=== PATIENT | male | born 1945 | race Caucasian/White ===

== ENCOUNTER 2016-07-28 18:27 | Inpatient (IN) | payer MEDICAID ==
[~2016-07-28] VITALS: Ht 172.7 cm; Wt 77.8 kg
--- NOTE | 2016-07-28 18:52 | ERA ---
ER Documentation Chief Complaint Date/Time DATE: 07/28/16 TIME: 18:47 Chief Complaint according to , pt "talking jibberish" approximately 3-4 hr ago HPI Patient is a 71-year-old man, last known well at 10 AM, who was noted by his to be speaking gibberish on the phone around 1:40 PM. The does not know where the patient has been since this morning, says that the patient says that he was knocked out. Patient cannot provide additional history due to altered mental status. Per EMS, the patient had a normal glucose, no focal weakness or facial droop, but was not following commands appropriately and had some nonsensical speech. ROS All systems reviewed and are negative except as per history of present illness. Allergies Allergies: Coded Allergies: No Known Allergy (Unverified , 07/28/16) PMhx/Soc Past medical history: Hypertension, chronic pain, other history unknown use Past surgical history: Denies Social history: Intermittent alcohol use, occasionally heavy, no tobacco, no illicit drugs FmHx Family History: No coronary disease, No diabetes Physical Exam Vitals Vital Signs Date Time Temp Pulse Resp B/P Pulse Ox O2 Delivery O2 Flow Rate FiO2 07/28/16 18:33 97.9 68 18 179/92 97 Physical Exam Const: Alert, no acute distress Head: Atraumatic Eyes: Normal Conjunctiva, no pallor, no icterus, pupils equally round reactive to light, EOMI ENT: Normal External Ears, Nose and Mouth. Moist mucous membranes Neck: Full range of motion. No JVD. No carotid bruit. No meningismus. Resp: Clear to auscultation bilateral, no rales, no wheeze Cardio: Regular rate and rhythm, no murmurs Abd: Soft, non tender, non distended. Skin: No petechiae or rashes Back: No midline or flank tenderness Ext: No cyanosis, or edema Neur: Awake and alert, cranial nerves II through XII intact bilaterally, strength and sensation intact in 4 extremities, normal gait, no pronator drift, no dysmetria, no asterixis, no nystagmus. Patient is not following all commands , has some garbled speech. Negative Babinski bilateral. Psych: Normal Mood and Affect Result Diagram: 07/28/16 1840 07/28/16 1840 Results 24 hrs Laboratory Tests Test 07/28/16 18:40 07/28/16 19:05 07/28/16 19:15 White Blood Count 11.210^3/ul Red Blood Count 3.9310^6/ul Hemoglobin 12.9g/dl Hematocrit 37.6% Mean Corpuscular Volume 95.7fl Mean Corpuscular Hemoglobin 32.8pg Mean Corpuscular Hemoglobin Concent 34.3g/dl Red Cell Distribution Width 11.7% Platelet Count 26536^3/UL Mean Platelet Volume 9.2fl Neutrophils % 74.9% Lymphocytes % 18.3% Monocytes % 5.4% Eosinophils % 0.6% Basophils % 0.3% Nucleated Red Blood Cells % 0.0/100WBC Neutrophils # 8.410^3/ul Lymphocytes # 2.110^3/ul Monocytes # 0.610^3/ul Eosinophils # 0.110^3/ul Basophils # 0.010^3/ul Nucleated Red Blood Cells # 0.010^3/ul Prothrombin Time 13.3Sec Prothrombin Time Ratio 1.0 INR International Normalized Ratio 1.01 Activated Partial Thromboplast Time 26.1Sec Sodium Level 142mmol/L Potassium Level 3.5mmol/L Chloride Level 103mmol/L Carbon Dioxide Level 26mmol/L Anion Gap 17 Blood Urea Nitrogen 27mg/dl Creatinine 1.19mg/dl Glucose Level 95mg/dl Calcium Level 9.5mg/dl Total Bilirubin 1.0mg/dl Direct Bilirubin 0.00mg/dl Indirect Bilirubin 1.0mg/dl Aspartate Amino Transf (AST/SGOT) 26IU/L Alanine Aminotransferase (ALT/SGPT) 30IU/L Alkaline Phosphatase 48IU/L Ammonia < 9umol/l Troponin I < 0.012ng/ml Total Protein 7.4g/dl Albumin 4.4g/dl Globulin 3.00g/dl Albumin/Globulin Ratio 1.46 Ethyl Alcohol Level < 10.0mg/dl Bedside Glucose 89mg/dL Urine Color LT. YELLOW Urine Clarity CLEAR Urine pH 6.0 Urine Specific Lynn 1.020 Urine Ketones NEGATIVE Urine Nitrite NEGATIVE Urine Bilirubin NEGATIVE Urine Urobilinogen 0.2 E.U./dL Urine Leukocyte Esterase NEGATIVE Urine Microscopic RBC 2-5/HPF Urine Microscopic WBC 0-2/HPF Urine Squamous Epithelial Cells OCCASIONAL Urine Hemoglobin 1+ Urine Glucose NEGATIVE% Urine Total Protein NEGATIVE Urine Opiates Screen POSITIVE Urine Barbiturates NEGATIVE Urine Amphetamines Screen NEGATIVE Urine Benzodiazepines Screen NEGATIVE Urine Cocaine Screen NEGATIVE Urine Cannabinoids NEGATIVE Current Medications Medications (Trade) Dose Ordered Sig/Venkatesh Route PRN Reason Start Time Stop Time Status Last Admin Dose Admin Aspirin (Aspirin) 162 mg ONCE ONCE PO 07/28/16 20:00 07/28/16 20:01 DC 07/28/16 19:42 IV Flush 10 ml 10 ml STK-MED ONCE .ROUTE 07/28/16 19:40 07/28/16 19:41 DC 07/28/16 20:06 Sodium Chloride 100 ml @ ud STK-MED ONCE .ROUTE 07/28/16 19:40 07/28/16 19:41 DC 07/28/16 20:07 Iohexol (Omnipaque) 100 ml @ ud STK-MED ONCE .ROUTE 07/28/16 19:40 07/28/16 19:41 DC 07/28/16 20:06 Iohexol (Omnipaque 350mg/ ml) 50 ml STK-MED ONCE .ROUTE 07/28/16 19:40 07/28/16 19:41 DC Procedures/MDM EKG read by me: Time 1835, rate 61 Rhythm: Normal sinus [place]: Normal Intervals: Normal ST-T waves: no ischemic changes Ectopy: No Q-waves: No Impression: No evidence of ischemia or arrhythmia MDM: Patient is a 71-year-old male with hypertension who presents with altered mental status that is defined by garbled speech and difficulty following commands. There is no motor deficit in the patient is able to follow some commands and communicate some thoughts. CT head was unremarkable, aspirin was given for presumed ischemic CVA, which was confirmed on CT angiogram of the head. The patient was not a candidate for TPA based upon her last known well time of 10 AM, outside of the 4 and a half hour window. The CT angiogram showed a fourth or fifth order branch of the MCA that was occluded by thrombus, which is not amenable to endovascular treatment. The patient received aspirin, and will be admitted for further stroke workup. There is no evidence of atrial fibrillation. There is no carotid bruit. The patient does not have known CHF. The patient had a blood pressure in the 170s systolic, which was not treated due to permissive hypertension for acute ischemic CVA. Departure Diagnosis: Primary Impression: Acute ischemic stroke Additional Impression: Aphasia Condition: Stable KIMBERLY ORR MD Jul 28, 2016 18:52
[2016-07-28 19:00] LABS: ADD SCAN DIFF NO
[2016-07-28 19:04] LABS: BASOPHILS % 0.3 % (0.0-2.0); EOSINOPHILS # 0.1 10^3/ul (0.0-0.5); EOSINOPHILS % 0.6 % (0.0-7.0); HEMATOCRIT 37.6 % (42.0-52.0); HEMOGLOBIN 12.9 g/dl (14.0-18.0); LYMPHOCYTES # 2.1 10^3/ul (0.8-2.9); LYMPHOCYTES % 18.3 % (15.0-51.0); MEAN CORPUSCULAR HEMOGLOBIN 32.8 pg (29.0-33.0); MEAN CORPUSCULAR HGB CONC 34.3 g/dl (32.0-37.0); MEAN CORPUSCULAR VOLUME 95.7 fl (82.0-101.0); MEAN PLATELET VOLUME 9.2 fl (7.4-10.4); MONOCYTE # 0.6 10^3/ul (0.3-0.9); MONOCYTES % 5.4 % (0.0-11.0); NEUTROPHIL # 8.4 10^3/ul (1.6-7.5); NEUTROPHILS % 74.9 % (39.0-77.0); PLATELET COUNT 224 10^3/UL (140-415); RED BLOOD COUNT 3.93 10^6/ul (4.70-6.10); RED CELL DISTRIBUTION WIDTH 11.7 % (11.5-14.5); WHITE BLOOD COUNT 11.2 10^3/ul (4.8-10.8)
[2016-07-28 19:12] LABS: INR 1.01; PROTIME 13.3 Sec (12.2-14.2)
[2016-07-28 19:13] LABS: PARTIAL THROMBOPLASTIN TIME 26.1 Sec (25.0-35.0)
--- NOTE | 2016-07-28 19:14 | RADRPT ---
PROCEDURE: CT Head without. CLINICAL INDICATION: Altered mental status. TECHNIQUE: The study was performed utilizing a multi-slice, multidetector CT scanner. Direct spira l 1 mm axial sections were obtained through the head without the use of intravenous contrast materia l. 1 or more of the following dose reduction techniques were utilized: Automated exposure control, adjustment of the mA and/or kV according to patient's size, iterative reconstruction technique. Co héctor and sagittal reformations were obtained. The images were reviewed on a PACS workstation. RADIATION DOSE: CTDIvol: 43.5 mGyDLP: 720.2 mGy-cm COMPARISON: No prior studies are available for comparison. FINDINGS: There is no intracranial hemorrhage, extra-axial fluid collection, mass lesion, midline shift or hyd rocephalus. There is mild to moderate prominence of the cerebral sulci, lateral and third ventricle s. There is moderate patchy periventricular and subcortical white matter hypodensity. There is mod erate arteriosclerotic calcification of the parasellar internal carotid arteries. The servin-white ma tter differentiation is preserved. The basal cisterns are patent. The midline structures are intac t. The orbits, calvarium and extracranial soft tissues are normal in appearance. The visualized par anasal sinuses, mastoid air cells and middle ear cavities are normally aerated. IMPRESSION: 1. No acute intracranial abnormality. No intracranial hemorrhage, extra-axial fluid collection, ma ss lesion or hydrocephalous. 2. Mild to moderate peripheral and central cerebral volume loss. 3. Moderate patchy periventricular and subcortical white matter hypodensity, likely related to combiner operator claudette microangiopathic changes. 4. No definite extension of hypodensity through the cortex to suggest infarct at this time. If cli nical concern for infarct, MRI is recommended for further evaluation. RPTAT: HGAS .Jamie Blank MD, MD Date Time Electronically viewed and signed by .Jamie Blank MD, on 07/28/2016 19:14 .S/
[2016-07-28 19:15] LABS: ALBUMIN 4.4 g/dl (3.3-4.9); CHLORIDE 103 mmol/L (97-110); POTASSIUM 3.5 mmol/L (3.5-5.1); SODIUM 142 mmol/L (135-144)
[2016-07-28 19:17] LABS: CREATININE 1.19 mg/dl (0.61-1.24)
[2016-07-28 19:18] LABS: ALANINE AMINOTRANSFERASE 30 IU/L (13-69); ALBUMIN/GLOBULIN RATIO 1.46; ALKALINE PHOSPHATASE 48 IU/L (42-121); ANION GAP 17 (8-16); ASPARTATE AMINO TRANSFERASE 26 IU/L (15-46); BLOOD UREA NITROGEN 27 mg/dl (7-20); CALCIUM 9.5 mg/dl (8.4-10.2); CARBON DIOXIDE 26 mmol/L (21-31); GLUCOSE 95 mg/dl (70-220); TOTAL PROTEIN 7.4 g/dl (6.1-8.1)
[2016-07-28 19:30] LABS: ETHANOL < 10.0 mg/dl; TROPONIN-I < 0.012 ng/ml (0.00-0.12)
[2016-07-28 19:40] LABS: ADD UMIC YES; URINE BILIRUBIN (Dip) NEGATIVE (NEGATIVE); URINE BLOOD (Dip) 1+ (NEGATIVE); URINE COLOR LT. YELLOW (YELLOW); URINE GLUCOSE (Dip) NEGATIVE (NEGATIVE); URINE KETONES (Dip) NEGATIVE (NEGATIVE); URINE LEUKOCYTE ESTERASE (Dip) NEGATIVE (NEGATIVE); URINE NITRITE (Dip) NEGATIVE (NEGATIVE); URINE TOTAL PROTEIN (Dip) NEGATIVE (NEGATIVE); URINE UROBILINOGEN (Dip) 0.2 E.U./dL (0.1-1.0)
[2016-07-28] MEDS ORDERED: IOHEXOL 100 ML ONE (19:40)
[2016-07-28] MEDS ORDERED: SOD CHLORIDE 0.9% 100 ML ONE (19:40)
[2016-07-28] MEDS ORDERED: IOHEXOL 350MG/ML 50 ML BTL ONE (19:40)
--- NOTE | 2016-07-28 19:44 | RADRPT ---
PROCEDURE: XR Chest. CLINICAL INDICATION: Altered mental status. TECHNIQUE: Portable AP upright view of the chest was obtained. COMPARISON: None available. FINDINGS: The cardiomediastinal silhouette is mildly enlarged. The lungs are clear. There is no evidence for pleural effusion, pneumothorax or pulmonary vascular congestion. The osseous structures are intact with no evidence for acute abnormality. Calcification aortic arch is demonstrated. RPTAT:HJJR IMPRESSION: 1. Mild cardiac silhouette enlargement without evidence for acute intrathoracic pathology. 2. Aortic atherosclerosis is present. Physician Alonzo Date Time Electronically viewed and signed by Physician Alonzo on 07/28/2016 19:44 JR/
[2016-07-28 19:55] LABS: SQUAMOUS EPITHELIAL CELL,UR OCCASIONAL
[2016-07-28] MEDS ORDERED: ASPIRIN 81 MG TAB PO ONE (20:00)
[2016-07-28 20:18] LABS: BARBITURATES NEGATIVE (NEGATIVE); BENZODIAZEPINES NEGATIVE (NEGATIVE); CANNABINOIDS NEGATIVE (NEGATIVE); COCAINE NEGATIVE (NEGATIVE); OPIATES POSITIVE (NEGATIVE)
--- NOTE | 2016-07-28 20:34 | RADRPT ---
PROCEDURE: CTA Brain. CLINICAL INDICATION: Altered mental status and possible stroke TECHNIQUE: The study was performed utilizing a GE 64-slice multidetector CT scanner. Direct spiral 0.65 mm axial sections were obtained through the intracranial vasculature with the use of 100 cc of Onipaque 350 nonionic intravenous contrast material. Coronal and sagittal MPRs as well as maximal intensity projection reformations were obtained. The images were reviewed on a PACS workstation. The CTDIvol is 75.66 mGy and the DLP is 605.24 mGycm. COMPARISON: No prior studies are available for comparison. FINDINGS: The internal carotid arteries are patent and normal in caliber. Moderate calcified plaque is noted i n the bilateral cavernous internal carotid arteries. The proximal anterior cerebral and middle cere bral arteries are patent and normal in caliber. An abrupt occlusion is noted in the left fourth and fifth order middle cerebral artery branches compatible with acute infarct. The vertebral arteries, basilar artery, superior cerebellar arteries, and posterior cerebral arteries are all normal in appe arance. A dominant right vertebral artery is present. A large right posterior communicating artery is present. No aneurysm is identified. No vascular malformation is seen. An acute infarct is noted in the left parietal lobe with subtle decreased attenuation noted IMPRESSION: 1. Acute occlusion of the distal fourth and fifth order left middle cerebral artery branches compat ible with acute , non hemorrhagic, infarct in the left parietal lobe. 2. Acute non hemorrhagic left parietal lobe infarct. 3. Moderate atherosclerotic vascular disease A call report was made to Guerrero Wells at 07/28/2016 8:30:42 PM following the completion of the ex amination by the undersigned. RPTAT: HDC .Mikki Sifuentes MD, MD Date Time Electronically viewed and signed by .Mikki Sifuentes MD, on 07/28/2016 20:34 .C/
[2016-07-28] MEDS ORDERED: ONDANSETRON 4 MG INJ IV PRN (21:00)
[2016-07-28] MEDS ORDERED: ACETAMINOPHEN 325 MG TAB PO PRN (21:00)
[2016-07-28 23:30] VITALS: TEMP 98
[2016-07-29] VITALS (13 sets, daily range): BP systolic 130–201; BP diastolic 63–91; PULSE 53–69; RESP 18–21; Ht 172.7 cm; Wt 77.8 kg
[2016-07-29] MEDS ORDERED: HYDROCODONE/APAP (7.5/325) TAB PO PRN (03:00)
[2016-07-29] MEDS: FISH OIL 1,000 MG CAP PO SCH ×2 (03:00→09:14)
[2016-07-29 06:59] LABS: ADD SCAN DIFF NO
[2016-07-29 07:02] LABS: BASOPHIL # 0.1 10^3/ul (0.0-0.1); BASOPHILS % 0.5 % (0.0-2.0); EOSINOPHILS # 0.2 10^3/ul (0.0-0.5); EOSINOPHILS % 1.7 % (0.0-7.0); HEMATOCRIT 36.7 % (42.0-52.0); HEMOGLOBIN 12.3 g/dl (14.0-18.0); LYMPHOCYTES # 3.6 10^3/ul (0.8-2.9); LYMPHOCYTES % 36.7 % (15.0-51.0); MEAN CORPUSCULAR HEMOGLOBIN 32.2 pg (29.0-33.0); MEAN CORPUSCULAR HGB CONC 33.5 g/dl (32.0-37.0); MEAN CORPUSCULAR VOLUME 96.1 fl (82.0-101.0); MEAN PLATELET VOLUME 9.2 fl (7.4-10.4); MONOCYTE # 0.9 10^3/ul (0.3-0.9); NEUTROPHILS % 51.8 % (39.0-77.0); PLATELET COUNT 207 10^3/UL (140-415); RED BLOOD COUNT 3.82 10^6/ul (4.70-6.10); WHITE BLOOD COUNT 9.7 10^3/ul (4.8-10.8)
[2016-07-29 07:24] LABS: ALBUMIN/GLOBULIN RATIO 1.21; BILIRUBIN,INDIRECT 0.8 mg/dl (0-1.1); BILIRUBIN,TOTAL 0.8 mg/dl (0.2-1.3); CALCIUM 9.1 mg/dl (8.4-10.2); CHOL/HDL RATIO 3.1 RATIO; CREATININE 1.1 mg/dl (0.61-1.24); POTASSIUM 3.5 mmol/L (3.5-5.1); TOTAL PROTEIN 7.3 g/dl (6.1-8.1)
--- NOTE | 2016-07-29 07:36 | HP ---
Date/Time of Note Date/Time of Note DATE: 07/29/16 TIME: 07:21 Assessment/Plan VTE Prophylaxis VTE Prophylaxis Intervention: heparin Lines/Catheters IV [facility] Urinary Cath still in place: No Assessment/Plan Assessment/Plan 1. Acute Ischemic CVA - Aspirin, statin and subq heparin for Prophylaxis - will obtain MRI of the brain - neurology consult - PT and speech/swallow eval - Will allow permissive Hypertension and will not treat BP for 24hrs unless > 220/120 ( until 10am tomorrow) 2. Hypertensive Urgency - See above 3. Hx of BPH - once we obtain home med, will resume DVT ppx: subq heparin HPI/ROS Admit Date/Time Admit Date/Time Jul 28, 2016 at 20:36 Hx of Present Illness Patient is a 71 yo male with hx of HTN and BPH who was brought to ER for altered mentation. pt, currently is not able to provide history and as such information is gathered from chart review, ER Physician and son who is at bedside. Per EMS, pt was found in [place] without [place]. told ER that when she talked to him over the phone in the afternoon, she was not able to understand him and was talking gebbrish. Currently pt does not know his name, year or location. His son said, the last time he saw his father was a week ago and said his father has always been fully independent. ER Course: BP was as high as 209/103. CT head showed Moderate patchy periventricular and subcortical white matter hypodensity, likely related to chronic microangiopathic changes, but no infarct, however CTA of head showed acute occlusion of the distal fourth and fifth order left middle cerebral artery branches compatible with acute , non hemorrhagic, infarct in the left parietal lobe and acute non hemorrhagic left parietal lobe infarct. . PMH/Family/Social Past Medical History Medical History: hypertension, other (BPH) Social History Alcohol Use: occasionally Smoking Status: Never smoker Drug Use: none Exam/Review of Systems Vital Signs Vitals Vital Signs Date Time Temp Pulse Resp B/P Pulse Ox O2 Delivery O2 Flow Rate FiO2 07/29/16 04:42 53 07/29/16 01:30 98.9 18 157/77 93 Room Air Exam Constitutional: other (not oriented. No acute distress) Head: atraumatic, normocephalic Eyes: PERRL Respiratory: clear to auscultation, normal air movement Cardiovascular: nl pulses, regular rate and rhythm Gastrointestinal: non-tender, soft Extremities: normal pulses Neurological: confused, nl strength, other (sensations intact to light touch) Labs Result Diagram: 07/29/16 0653 07/28/16 1840 Medications Medications Current Medications Cholecalciferol (Vitamin D) 1,000 unit DAILY PO ; Start 07/29/16 at 09:00 Folic Acid (Folic Acid) 1 mg DAILY PO ; Start 07/29/16 at 09:00 Aspirin (Halfprin) 81 mg DAILY PO ; Start 07/29/16 at 09:00 Fish Oil (Fish Oil) 1,000 mg DAILY PO ; Start 07/29/16 at 03:00 Acetaminophen/ Hydrocodone Bitart ([place] (7.5-325)) 1 tab BID PRN PO PAIN; Start 07/29/16 at 03:00 Tamsulosin HCl (Flomax) 0.4 mg HS PO ; Start 07/29/16 at 21:00 Atorvastatin Calcium (Lipitor) 40 mg HS PO ; Start 07/29/16 at 21:00 Heparin Sodium (Porcine) (Heparin (5000 Units/0.5 ml)) 5,000 unit BID SC ; Start 07/29/16 at 09:00 JACK RESTREPO MD Jul 29, 2016 07:34
[2016-07-29] MEDS ORDERED: LISI40TA9 PO (07:40)
[2016-07-29] MEDS ORDERED: ATOR40TA68 PO (07:45)
[2016-07-29] MEDS ORDERED: FOLI-49 PO (07:45)
[2016-07-29] MEDS ORDERED: TAMS0.4C2 PO (07:45)
[2016-07-29] MEDS ORDERED: ASPI-664 PO (07:45)
[2016-07-29] MEDS ORDERED: ATEN50TA PO (07:45)
[2016-07-29] MEDS ORDERED: CHOL100062 PO (07:45)
[2016-07-29] MEDS ORDERED: HYD25 PO (07:47)
[2016-07-29] MEDS ORDERED: IBUP800T25 PO (07:47)
[2016-07-29] MEDS ORDERED: hydrALAzine 20 MG INJ IV PRN (08:30)
[2016-07-29] MEDS ORDERED: ASPIRIN (EC) 81 MG TAB PO SCH (09:00)
[2016-07-29] MEDS: CHOLECALCIFEROL 1,000 UNIT TAB PO SCH (09:14)
[2016-07-29] MEDS: FOLIC ACID 1 MG TAB PO SCH (09:14)
[2016-07-29] MEDS: HEPARIN 5,000 UNIT/0.5 ML VIAL SC SCH ×2 (09:21→21:19)
--- NOTE | 2016-07-29 10:11 | RADRPT ---
Vent Rate: 53 bpm RR Interval: 0 msec GA Interval: 194 msec QRS Duration: 112 msec QT Interval: 450 msec QTC Interval: 422 msec P-R-T [place]: 47 - 54 - 92 degrees Sinus bradycardia Otherwise normal ECG Electronically Signed By: Edgardo Huff [id number]
--- NOTE | 2016-07-29 11:50 | RADRPT ---
Echocardiogram Report Patient Name: KUSHAL BALLESTEROS Gender: Male Date: 1945 Study Date: 29-Jul-2016 Paraffiner: [facility] Location: [id number] Ref. Physician: JACK RESTREPO Quality: Good Procedures: Transthoracic echocardiogram with complete 2D, M-Mode, and doppler examination. Indications: Acute stroke. 2D/M Mode Doppler Measurement Value Normal Ranges Measurement Value Normal Ranges LVIDd 2D 5.0 3.5 - 5.6 cm AV Peak Lizandro 1.3 m/sec LVIDs 2D 2.7 2.1 - 4.1 cm AV Peak PG 7.0 mmHg FS 2D 46.9 % LVOT Peak Lizandro 0.8 m/sec LVPWd 2D 1.2 0.6 - 1.1 cm LVOT Peak PG 2.0 mmHg IVSd 2D 1.2 0.6 - 1.1 cm MV E Peak Lizandro 0.6 m/sec IVS/LVPW 2D 1.0 MV A Peak Lizandro 0.8 m/sec AoR Diam 2D 3.4 2.0 - 3.7 cm MV E/A 0.8 LA/Ao 2D 1 0 - 1 MV Decel Time 155 msec EDV 2D 126.0 cm3 MV E/A 0.8 ESV 2D 18.8 cm3 LA Dimen 2D 4.5 2.3 - 4.0 cm Findings Left Ventricle: Normal left ventricular systolic function. Normal left ventricular cavity size. Mild concentric left ventricular hypertrophy. Ejection fraction is visually estimated at 55 %. Tissue Doppler/Mitral Doppler indices are consistent with impaired relaxation (Stage I diastolic dysfunction). Right Ventricle: Normal right ventricular size. Normal right ventricular systolic function. Left Atrium: There is mild enlargement of left atrium. Right Atrium: The right atrium is normal in size. Mitral Valve: Mild mitral annular calcification. Trace mitral regurgitation. Aortic Valve: No significant aortic stenosis or insufficiency. Aortic cusps appear mildly calcified. Tricuspid Valve: Normal appearance and function of the tricuspid valve with trace physiologic regurgitation. Unable to obtain RVSP due to minimal presence of tricuspid regurgitation. Pulmonic Valve: Pulmonic valve not well visualized. Pericardium: Normal pericardium with no significant pericardial effusion. Aorta: Normal aortic root. IVC: Normal size and normal respiratory collapse consistent with normal right atrial pressure. Conclusions 1.Normal left ventricular systolic function. Normal left ventricular cavity size. Mild concentric left ventricular hypertrophy. Ejection fraction is visually estimated at 55 %. The inferolateral wall is not well seen. Tissue Doppler/Mitral Doppler indices are consistent with impaired relaxation (Stage I diastolic dysfunction). 2.No significant valvular stenosis or regurgitation seen. 3.Unable to obtain RVSP due to minimal presence of tricuspid regurgitation. RA pressure is 3 mmHg. Electronically Signed By: Mark Whatley 29-Jul-2016 11:49:48 -0700 Patient Name: KUSHAL BALLESTEROS Study Date: 29-Jul-2016 [id number]
--- NOTE | 2016-07-29 17:09 | RADRPT ---
PROCEDURE: MRI Brain without contrast. CLINICAL INDICATION: CVA. TECHNIQUE: An MRI of the brain was performed utilizing the following sequences: Sagittal and axial T1 weighted, axial T2 weighted, axial diffusion weighted with ADC mapping, coronal GRE, and axial F LAIR. COMPARISON: Brain CT 07/28/2016. FINDINGS: There is area of restricted diffusion involving left parietal lobe and posterior insula/temporal lob e consistent with acute/recent infarct in posterior left MCA distribution. No hypointense signal ab normalities are seen on the GRE images to suggest the presence of blood degradation products. There is no evidence of intracranial hemorrhage, mass effect, or midline shift. No extra-axial fluid cody ections are seen. The ventricles and sulci are mildly to moderately enlarged indicative of volume lo ss. There are mild to moderate scattered foci of T2 FLAIR hyperintensity in the periventricular, deep, a nd subcortical white matter, which are nonspecific in etiology but likely reflect chronic small vess el ischemic changes. Small focal infarct is noted in the medial right cerebellar hemisphere. No abnormal intracranial vascular flow void is noted. The visualized paranasal sinuses demonstrate m ild mucosal thickening mainly in ethmoid air cells and maxillary sinuses. IMPRESSION: 1. Acute/recent infarct involving left parietal lobe and posterior insula/temporal lobe in posteri or left MCA distribution. 2. Mild to moderate chronic small vessel ischemic changes. 3. Mild to moderate generalized cerebral volume loss. 4. Mild paranasal sinus disease. A call report was made and above findings were discussed and acknowledged by patient's nurse NITISH Ambriz on 07/29/2016 at 4:59 PM to relay to Galo Aguilar. RPTAT: HH .Dandy Costello MD, MD Date Time Electronically viewed and signed by .Dandy Costello MD, MD on 07/29/2016 17:09 .N/
[2016-07-29] MEDS ORDERED: ASPIRIN 81 MG TAB PO ONE (18:00)
--- NOTE | 2016-07-29 20:21 | RADRPT ---
PROCEDURE: US Carotids. CLINICAL INDICATION: bruit , CVA TECHNIQUE: Multiple sonographic of the carotid bifurcation region and vertebral arteries were obta ined utilizing servin scale, duplex and color-flow imaging. The images were reviewed on a PACS worksta tion. COMPARISON: No prior studies are available for comparison. FINDINGS: Evaluation of the right carotid bifurcation region reveals no significant calcific atherosclerotic d isease. Evaluation of the left carotid bifurcation region reveals mild calcific atherosclerotic disease. Th ere is a 32% stenosis in the left carotid bulb region. There is a 35% stenosis in the left proximal ICA. There is antegrade flow within the vertebral arteries bilaterally. RIGHT CAROTID MEASUREMENTS: Common Carotid Pruxdw91.7 (cm/sec) Internal Carotid Artery - aabqipxn92.9 (cm/sec) Internal Carotid Artery - mid57.9 (cm/sec) Internal Carotid Artery - ciwfyx70.3 (cm/sec) Internal Carotid/Common Carotid0.98 LEFT CAROTID MEASUREMENTS: Common Carotid Ifslqn942.9 (cm/sec) Internal Carotid Artery - .5 (cm/sec) Internal Carotid Artery - mid53.6 (cm/sec) Internal Carotid Artery - .7 (cm/sec) Internal Carotid/Common Carotid0.67 RPTAT: AA IMPRESSION: No evidence for hemodynamically significant stenosis in the bilateral internal carotid arteries - va lidated velocity measurements with angiographic measurements, velocity criteria are extrapolated fro m diameter data as defined by the Society of Radiologists in Ultrasound Consensus Conference Radiolo gy 2003; 229;340-346. This study does indirectly reference the measurement of the distal ICA diamet er as the denominator for stenosis measurement. Normal antegrade flow in the vertebral arteries bilaterally. Mild calcific plaque in the left carotid bulb region and left proximal ICA, with a 35% stenosis. .Ilan Barreto MD, Date Time Electronically viewed and signed by .Ilan Barreto MD, on 07/29/2016 20:21 .S/
[2016-07-29] MEDS ORDERED: ATORVASTATIN 40 MG TAB PO SCH (21:00)
[2016-07-29] MEDS: ATORVASTATIN 80 MG TAB PO SCH (21:18)
[2016-07-29] MEDS: TAMSULOSIN (SR) 0.4 MG CAP PO SCH (21:18)
[2016-07-30] VITALS (13 sets, daily range): BP systolic 139–199; BP diastolic 71–92; PULSE 47–63; RESP 16–21
[2016-07-30 07:23] LABS: ADD SCAN DIFF NO
[2016-07-30 07:25] LABS: BASOPHILS % 0.3 % (0.0-2.0); EOSINOPHILS # 0.2 10^3/ul (0.0-0.5); EOSINOPHILS % 2.3 % (0.0-7.0); HEMATOCRIT 36.3 % (42.0-52.0); HEMOGLOBIN 12.5 g/dl (14.0-18.0); LYMPHOCYTES % 34.3 % (15.0-51.0); MEAN CORPUSCULAR HEMOGLOBIN 32.8 pg (29.0-33.0); MEAN CORPUSCULAR HGB CONC 34.4 g/dl (32.0-37.0); MEAN CORPUSCULAR VOLUME 95.3 fl (82.0-101.0); MEAN PLATELET VOLUME 9.3 fl (7.4-10.4); MONOCYTE # 0.8 10^3/ul (0.3-0.9); MONOCYTES % 9.3 % (0.0-11.0); NEUTROPHIL # 4.7 10^3/ul (1.6-7.5); NEUTROPHILS % 53.6 % (39.0-77.0); PLATELET COUNT 215 10^3/UL (140-415); RED BLOOD COUNT 3.81 10^6/ul (4.70-6.10); RED CELL DISTRIBUTION WIDTH 11.7 % (11.5-14.5); WHITE BLOOD COUNT 8.8 10^3/ul (4.8-10.8)
[2016-07-30 08:33] LABS: CALCIUM 8.7 mg/dl (8.4-10.2); CREATININE 0.91 mg/dl (0.61-1.24); MAGNESIUM 2.2 mg/dl (1.7-2.5); PHOSPHORUS 4.2 mg/dl (2.5-4.9); POTASSIUM 3.2 mmol/L (3.5-5.1)
[2016-07-30] MEDS: CHOLECALCIFEROL 1,000 UNIT TAB PO SCH (09:46)
[2016-07-30] MEDS: FISH OIL 1,000 MG CAP PO SCH (09:46)
[2016-07-30] MEDS: FOLIC ACID 1 MG TAB PO SCH (09:46)
[2016-07-30] MEDS: ASPIRIN (EC) 81 MG TAB PO SCH (09:46)
[2016-07-30] MEDS: HEPARIN 5,000 UNIT/0.5 ML VIAL SC SCH ×2 (09:48→20:45)
[2016-07-30] MEDS ORDERED: POTASSIUM CHLORIDE (SR) 20 MEQ TAB PO STA (13:52)
--- NOTE | 2016-07-30 14:18 | CONS ---
DATE OF ADMISSION: 07/28/2016 DATE OF CONSULTATION: 07/30/2016 TYPE OF CONSULTATION PALLIATIVE CARE HISTORY OF PRESENT ILLNESS: This is a brief note on this very pleasant 71-year-old gentleman I was asked to see him while he is hospitalized here for stroke syndrome. However, the patient is a bobo nal historian and all the information is taken from his current medical records. He presented to [facility] 07/28/[address] scan was essentially unremark able for acute CVA; however, CTA of the head showed acute occlusion of the distal 4th and 5th left M CA branches compatible with acute nonhemorrhagic left parietal lobe infarct. Essentially since that time, the patient has done extremely well. He has had a complete workup. MRI was done. He is ant icoagulated and on low dose of aspirin Neurology consultation is pending. It is noted in the patie nt's chart that on presentation he had a normal cardiac findings on echocardiogram. Please refer to detailed echocardiogram report by Dr. Mark Whatley done on 07/29/2016 which showed: 1. Normal left ventricular function, normal left ventricular cavity size, mild concentric LVH, EF 5 5%. Inferior wall not visualized well. 2. Nonsignificant valvular stenosis or regurgitation. 3. Unable to obtain RVSP due to the minimal presence of tricuspid regurgitation. RA pressure is 3 mmHg. MEDICATIONS: Please refer to reconciliation sheet. ALLERGIES: NO KNOWN ALLERGIES. MAJOR MEDICAL PROBLEMS IN THE PAST: As per history of present illness in addition to hypertension a nd history of BPH. PHYSICAL EXAMINATION: Shows a well-nourished, well-developed gentleman, in no major acute distress. Physical examination is deferred at this time. ASSESSMENT AND PLAN: This is a very pleasant 71-year-old gentleman who looks much younger than his stated age, who sustained an acute CVA. Clinical impression is that he looks extremely good and I d o not believe there is any indication at this time for discussion of POLST form or an advanced dire ctive. Theoretically, a POLST form can be addressed and at some later date an advanced directive ca n be discussed by his primary care physician. I believe it is a bit early and that conversation can be delayed at this time. Dictated By: PATTI CORADO MD, LP/NTS Conf#: [id number] DID#: [id number]
--- NOTE | 2016-07-30 18:41 | PN ---
Date/Time of Note Date/Time of Note DATE: 07/30/16 TIME: 18:38 Assessment/Plan VTE Prophylaxis VTE Prophylaxis Intervention: heparin Lines/Catheters IV C[facility]ter Type (from [facility] Urinary Cath still in place: No Assessment/Plan Chief Complaint/Hosp Course 1. Acute Ischemic CVA- Speech is improving - Aspirin, statin - MRI of the brain shows left parietal lobe and posterior insula/temporal lobe in posterior left MCA distribution. - neurology consult - PT and speech/swallow eval - start Norvasc for BP control 2. Hypertensive Urgency -Start Norvasc 3. Hx of BPH - once we obtain home med, will resume DVT ppx: subq heparin Problems: Subjective 24 Hr Interval Summary Constitutional: no complaints Exam/Review of Systems Vital Signs Vitals Vital Signs Date Time Temp Pulse Resp B/P Pulse Ox O2 Delivery O2 Flow Rate FiO2 07/30/16 16:42 61 07/30/16 15:57 98.6 17 156/77 98 07/29/16 01:30 Room Air Intake and Output 07/29/16 07/29/16 07/30/16 15:00 23:00 07:00 Intake Total 800 ml 400 ml Balance 800 ml 400 ml Exam Constitutional: alert Respiratory: clear to auscultation Cardiovascular: regular rate and rhythm Gastrointestinal: soft, No distended Musculoskeletal: nl extremities to inspection Results Result Diagram: 07/30/16 0645 07/30/16 0645 Results 24 hrs Laboratory Tests Test 07/30/16 06:45 White Blood Count 8.8 Red Blood Count 3.81 L Hemoglobin 12.5 L Hematocrit 36.3 L Mean Corpuscular Volume 95.3 Mean Corpuscular Hemoglobin 32.8 Mean Corpuscular Hemoglobin Concent 34.4 Red Cell Distribution Width 11.7 Platelet Count 215 Mean Platelet Volume 9.3 Neutrophils % 53.6 Lymphocytes % 34.3 Monocytes % 9.3 Eosinophils % 2.3 Basophils % 0.3 Nucleated Red Blood Cells % 0.0 Neutrophils # 4.7 Lymphocytes # 3.0 H Monocytes # 0.8 Eosinophils # 0.2 Basophils # 0.0 Nucleated Red Blood Cells # 0.0 Sodium Level 138 Potassium Level 3.2 L Chloride Level 107 Carbon Dioxide Level 25 Anion Gap 9 Blood Urea Nitrogen 24 H Creatinine 0.91 Glucose Level 106 Calcium Level 8.7 Phosphorus Level 4.2 Magnesium Level 2.2 Medications Medications Current Medications Cholecalciferol (Vitamin D) 1,000 unit DAILY PO Last administered on 07/30/16 09:46; Admin Dose 1,000 UNIT; Start 07/29/16 at 09:00 Folic Acid (Folic Acid) 1 mg DAILY PO Last administered on 07/30/16 09:46; Admin Dose 1 MG; Start 07/29/16 at 09:00 Fish Oil (Fish Oil) 1,000 mg DAILY PO Last administered on 07/30/16 09:46; Admin Dose 1,000 MG; Start 07/29/16 at 03:00 Acetaminophen/ Hydrocodone Bitart ([place] (7.5-325)) 1 tab BID PRN PO PAIN; Start 07/29/16 at 03:00 Tamsulosin HCl (Flomax) 0.4 mg HS PO Last administered on 07/29/16 21:18; Admin Dose 0.4 MG; Start 07/29/16 at 21:00 Heparin Sodium (Porcine) (Heparin (5000 Units/0.5 ml)) 5,000 unit BID SC Last administered on 07/30/16 09:48; Admin Dose 5,000 UNIT; Start 07/29/16 at 09:00 Hydralazine HCl (Apresoline) 10 mg Q4H PRN IV ELEVATED BLOOD PRESSURE Last administered on 07/29/16 09:12; Admin Dose 10 MG; Start 07/29/16 at 08:30 Aspirin (Halfprin) 162 mg DAILY PO Last administered on 07/30/16 09:46; Admin Dose 162 MG; Start 07/30/16 at 09:00 Atorvastatin Calcium (Lipitor) 80 mg HS PO Last administered on 07/29/16 21:18 ; Admin Dose 80 MG; Start 07/29/16 at 21:00 ELENI GOODMAN Jul 30, 2016 18:41
[2016-07-30] MEDS: ATORVASTATIN 80 MG TAB PO SCH (20:37)
[2016-07-30] MEDS: AMLODIPINE 5 MG TAB PO SCH (20:37)
[2016-07-30] MEDS: TAMSULOSIN (SR) 0.4 MG CAP PO SCH (20:37)
[2016-07-31] VITALS (12 sets, daily range): BP systolic 127–172; BP diastolic 68–91; PULSE 54–71; RESP 18–21
[2016-07-31 07:22] LABS: CALCIUM 9.1 mg/dl (8.4-10.2); CREATININE 0.96 mg/dl (0.61-1.24); POTASSIUM 3.7 mmol/L (3.5-5.1)
[2016-07-31] MEDS: CHOLECALCIFEROL 1,000 UNIT TAB PO SCH (08:32)
[2016-07-31] MEDS: FISH OIL 1,000 MG CAP PO SCH (08:35)
[2016-07-31] MEDS: ASPIRIN (EC) 81 MG TAB PO SCH (08:35)
[2016-07-31] MEDS: AMLODIPINE 5 MG TAB PO SCH (08:36)
[2016-07-31] MEDS: FOLIC ACID 1 MG TAB PO SCH (08:36)
[2016-07-31] MEDS: HEPARIN 5,000 UNIT/0.5 ML VIAL SC SCH ×2 (08:36→22:12)
--- NOTE | 2016-07-31 17:59 | PN ---
Date/Time of Note Date/Time of Note DATE: 07/31/16 TIME: 17:56 Assessment/Plan VTE Prophylaxis VTE Prophylaxis Intervention: heparin Lines/Catheters IV Catheter Type (from Nrs): Saline [facility] Urinary Cath still in place: No Assessment/Plan Chief Complaint/Hosp Course 1. Acute Ischemic CVA- Speech is improving - Aspirin, statin - MRI of the brain shows left parietal lobe and posterior insula/temporal lobe in posterior left MCA distribution. - neurology consult - PT and speech/swallow eval - started Norvasc for BP control 2. Hypertensive Urgency-improved -Increase Norvasc dose to 10 mg as BP still elevated 3. Hx of BPH - once we obtain home med, will resume Dispo: Possible DC tomorrow if continues to improve at current rate, patient is ambulating and speech has improved DVT ppx: subq heparin Problems: Subjective 24 Hr Interval Summary Constitutional: no complaints Exam/Review of Systems Vital Signs Vitals Vital Signs Date Time Temp Pulse Resp B/P Pulse Ox O2 Delivery O2 Flow Rate FiO2 07/31/16 16:07 62 07/31/16 15:10 98.5 18 172/90 97 07/29/16 01:30 Room Air Exam Constitutional: alert Respiratory: clear to auscultation Cardiovascular: regular rate and rhythm Gastrointestinal: soft, No distended Musculoskeletal: nl extremities to inspection Results Result Diagram: 07/30/16 0645 07/31/16 0625 Results 24 hrs Laboratory Tests Test 07/31/16 06:25 Sodium Level 139 Potassium Level 3.7 Chloride Level 108 Carbon Dioxide Level 24 Anion Gap 11 Blood Urea Nitrogen 27 H Creatinine 0.96 Glucose Level 118 Calcium Level 9.1 Medications Medications Current Medications Cholecalciferol (Vitamin D) 1,000 unit DAILY PO Last administered on 07/31/16 08:32; Admin Dose 1,000 UNIT; Start 07/29/16 at 09:00 Folic Acid (Folic Acid) 1 mg DAILY PO Last administered on 07/31/16 08:36; Admin Dose 1 MG; Start 07/29/16 at 09:00 Fish Oil (Fish Oil) 1,000 mg DAILY PO Last administered on 07/31/16 08:35; Admin Dose 1,000 MG; Start 07/29/16 at 03:00 Acetaminophen/ Hydrocodone Bitart ([place] (7.5-325)) 1 tab BID PRN PO PAIN; Start 07/29/16 at 03:00 Tamsulosin HCl (Flomax) 0.4 mg HS PO Last administered on 07/30/16 20:37; Admin Dose 0.4 MG; Start 07/29/16 at 21:00 Heparin Sodium (Porcine) (Heparin (5000 Units/0.5 ml)) 5,000 unit BID SC Last administered on 07/30/16 20:45; Admin Dose 5,000 UNIT; Start 07/29/16 at 09:00 Hydralazine HCl (Apresoline) 10 mg Q4H PRN IV ELEVATED BLOOD PRESSURE Last administered on 07/29/16 09:12; Admin Dose 10 MG; Start 07/29/16 at 08:30 Aspirin (Halfprin) 162 mg DAILY PO Last administered on 07/31/16 08:35; Admin Dose 162 MG; Start 07/30/16 at 09:00 Atorvastatin Calcium (Lipitor) 80 mg HS PO Last administered on 07/30/16 20:37 ; Admin Dose 80 MG; Start 07/29/16 at 21:00 Amlodipine Besylate (Norvasc) 5 mg DAILY PO Last administered on 07/31/16 08: 36; Admin Dose 5 MG; Start 07/30/16 at 19:00 ELENI GOODMAN Jul 31, 2016 17:58
[2016-07-31] MEDS: ATORVASTATIN 80 MG TAB PO SCH (22:06)
[2016-07-31] MEDS: TAMSULOSIN (SR) 0.4 MG CAP PO SCH (22:06)
[2016-08-01 00:25] VITALS: PULSE 56
[2016-08-01 04:14] VITALS: PULSE 60
[2016-08-01 07:15] VITALS: BP 166/84; RESP 16
[2016-08-01] MEDS: ASPIRIN (EC) 81 MG TAB PO SCH (08:11)
[2016-08-01] MEDS: FISH OIL 1,000 MG CAP PO SCH (08:11)
[2016-08-01] MEDS: FOLIC ACID 1 MG TAB PO SCH (08:12)
[2016-08-01] MEDS: CHOLECALCIFEROL 1,000 UNIT TAB PO SCH (08:12)
[2016-08-01] MEDS: HEPARIN 5,000 UNIT/0.5 ML VIAL SC SCH (08:14)
[2016-08-01 08:17] VITALS: PULSE 58
[2016-08-01] MEDS ORDERED: AMLODIPINE 5 MG TAB PO SCH (09:00)
[2016-08-01 11:12] VITALS: BP 174/90; RESP 18
--- NOTE | 2016-08-01 11:51 | PN ---
Date/Time of Note Date/Time of Note DATE: 08/01/16 TIME: 11:40 Assessment/Plan VTE Prophylaxis VTE Prophylaxis Intervention: heparin Lines/Catheters IV C[facility]ter Type (from [facility]): Saline Lock Urinary Cath still in place: No Assessment/Plan Assessment/Plan 1. Acute Ischemic CVA- Speech is improving - Aspirin, statin - MRI of the brain shows left parietal lobe and posterior insula/temporal lobe in posterior left MCA distribution. - neurology consulted on the case - PT and speech/swallow eval - resumed his home BP meds for better BP control 2. Hypertensive Urgency- not optimally controlled yet, continue amlodipine, will resume his 3. Hx of BPH DVT ppx: subq heparin pt BP is not been well controlled, he wants to go home, advised him to stay here and have a better BP controls since he has left MCA stroke, he said he dosen't care about BP, he understood and verbalized understanding including risks and complications of [place] medical advise and possible . he even dosen't want to wait for BP meds at bedside tried to explain him multiple times but he is not ready to listen to any time. he is alert, oriented x 3 and he said he wants to make decision for himself. Subjective 24 Hr Interval Summary Free Text/Dictation BP high, pt said he is feelign ok Exam/Review of Systems Vital Signs Vitals Vital Signs Date Time Temp Pulse Resp B/P Pulse Ox O2 Delivery O2 Flow Rate FiO2 08/01/16 11:12 97.8 61 18 174/90 99 07/29/16 01:30 Room Air Intake and Output 07/31/16 07/31/16 08/01/16 15:00 23:00 07:00 Intake Total 720 ml Balance 720 ml Exam Constitutional: alert Respiratory: clear to auscultation Cardiovascular: regular rate and rhythm Gastrointestinal: soft, No distended Musculoskeletal: nl extremities to inspection Results Result Diagram: 07/30/16 0645 07/31/16 0625 Medications Medications Current Medications Cholecalciferol (Vitamin D) 1,000 unit DAILY PO Last administered on 08/01/16 08:12; Admin Dose 1,000 UNIT; Start 07/29/16 at 09:00 Folic Acid (Folic Acid) 1 mg DAILY PO Last administered on 08/01/16 08:12; Admin Dose 1 MG; Start 07/29/16 at 09:00 Fish Oil (Fish Oil) 1,000 mg DAILY PO Last administered on 08/01/16 08:11; Admin Dose 1,000 MG; Start 07/29/16 at 03:00 Acetaminophen/ Hydrocodone Bitart ([place] (7.5-325)) 1 tab BID PRN PO PAIN; Start 07/29/16 at 03:00 Tamsulosin HCl (Flomax) 0.4 mg HS PO Last administered on 07/31/16 22:06; Admin Dose 0.4 MG; Start 07/29/16 at 21:00 Heparin Sodium (Porcine) (Heparin (5000 Units/0.5 ml)) 5,000 unit BID SC Last administered on 07/31/16 22:12; Admin Dose 5,000 UNIT; Start 07/29/16 at 09:00 Hydralazine HCl (Apresoline) 10 mg Q4H PRN IV ELEVATED BLOOD PRESSURE Last administered on 07/29/16 09:12; Admin Dose 10 MG; Start 07/29/16 at 08:30 Aspirin (Halfprin) 162 mg DAILY PO Last administered on 08/01/16 08:11; Admin Dose 162 MG; Start 07/30/16 at 09:00 Atorvastatin Calcium (Lipitor) 80 mg HS PO Last administered on 07/31/16 22:06 ; Admin Dose 80 MG; Start 07/29/16 at 21:00 Amlodipine Besylate (Norvasc) 10 mg DAILY PO Last administered on 08/01/16 08: 11; Admin Dose 10 MG; Start 08/01/16 at 09:00 CLARY MARCOS MD Aug 01, 2016 11:50
[2016-08-01] MEDS ORDERED: HYDROCHLOROTHIAZIDE 25 MG TAB PO SCH (12:00)
[2016-08-01] MEDS ORDERED: LISINOPRIL 20 MG TAB PO SCH (12:00)
--- NOTE | 2016-08-02 14:58 | DS ---
DATE OF ADMISSION: 07/28/2016 DATE OF DISCHARGE: 08/01/2016 FINAL DISCHARGE DIAGNOSES: 1. Acute ischemic cerebrovascular accident involving the left middle cerebral artery distribution. 2. Hypertensive urgency/emergency, poorly controlled secondary to noncompliance. 3. History of benign prostatic hypertrophy. 4. Intractable headache secondary to hypertensive urgency. CONSULTATIONS DONE DURING THIS HOSPITALIZATION: The patient was called in to have a neurology consu ltation by Dr. Marrufo but he signed out against medical advice prior to the evaluations. HOSPITAL COURSE: This is a 71-year-old male with a past medical history of hypertension who has bee n on multiple medications. There is a question of noncompliance with the antihypertensive medicatio ns. He presented with a complaint of speech difficulty. The patient gets admitted for possible TIA versus acute CVA. His initial CT head without contrast was negative. He had a subsequent MRI whic h was revealed acute CVA involving the left MCA distribution. His speech was resolved, but during t he hospitalization, the patient continues to have a blood pressure more than 220/120. He was starte d on multiple antihypertensives including his home medications. On 08/01/2016 the patient wanted to go home. His blood pressure was still in the high range of 190s to 200. He did not want to stay i n the hospital; he has been explained about the risks and complications of signing out against medic al advice, possible . He understood and verbalized understanding back to me. His was at bedside during the discussion and ultimately he signed out against medical advice on 08/01/2016. DISPOSITION: Please note the patient signed out against medical advice during this hospitalization. DISCHARGE MEDICATIONS: He did not wait for any prescriptions. DISCHARGE FOLLOWUP AND INSTRUCTIONS: He was recommended by the nursing staff to follow up with his primary care doctor as soon as possible. He is also advised to continue his antihypertensive that h as been prescribed by his primary care doctor and have more compliance with antihypertensive medicat ions. He understood and verbalized back to the nursing staff. Dictated By: CLARY MARCOS MD, KP/JOIE Conf#: [id number] DID#: [id number]
== END 2016-08-01 12:20 | disposition left against medical advice (07) | DRG 65 ==
LOC: E/R 18:27 → TEL 20:36
PROVIDERS: ADMIT Internal Medicine; ATTEND Internal Medicine
DX: I63.9 Cerebral infarction, unspecified (principal); I16.1 Hypertensive emergency; N40.0 Benign prostatic hyperplasia without lower urinary tract symptoms
CPT/HCPCS: 36415; 70450; 70496; 70551; 71010; 80048; 80053; 80061; 80306; 80307; 81001; 81003; 82140; 82962; 83036; 83735; 84100; 84484; 85025; 85610; 85730; 92526; 92610; 93005; 93306; 93880; 97162; J0360; J1644; Q9967